=== PATIENT | female | born 1985 | race Caucasian/White ===

== ENCOUNTER 2017-11-25 10:12 | Inpatient (IN) | payer OTHER ==
[~2017-11-25] VITALS: Ht 170.2 cm; Wt 63.0 kg
[~2017-11-25 10:12] MED LIST: ATARAX,VISTARIL25 MG PO; NEXIUM40 MG PO; NOHOMEMEDS; PRENATAL CAPSU1 EACH PO; PROZAC; XANAX1 MG PO; ~No Medications
[2017-11-25 10:56] LABS: HEMATOCRIT 37.4 % (36.0-46.0); HEMOGLOBIN 13.1 G/DL (11.9-15.5); MCH 31.4 PG (29.0-34.0); MCV 89.7 FL (83-99); PLATELET COUNT 269 K/uL (156-360); RBC DIS.WIDTH-CV 11.9 % (11.8-14.6); RBC DIS.WIDTH-SD 38.2 % (39-53); RED BLOOD COUNT 4.17 M/uL (3.80-5.20); WHITE BLOOD COUNT 10.7 K/uL (4.1-10.2)
[2017-11-25 11:09] LABS: ALBUMIN 4.4 g/dL (3.2-4.8); CHLORIDE 106 mEq/L (99-109); POTASSIUM 4.5 mEq/L (3.7-5.4); SODIUM 139 mEq/L (136-147)
[2017-11-25 11:12] LABS: GLUCOSE 87 mg/dL (70-99); TOTAL PROTEIN 6.9 g/dL (6.4-8.3)
[2017-11-25 11:14] LABS: TOTAL BILIRUBIN 0.4 mg/dL (0.0-1.0)
[2017-11-25 11:15] LABS: ALKALINE PHOSPHATASE 49 IU/L (3-129); SERUM ETHYL ALCOHOL 10 mg/dL
[2017-11-25 11:16] LABS: CREATININE 0.8 mg/dL (0.6-1.3); GFR ESTIMATE (CALCULATED) > 59 mL/min/
[2017-11-25 11:17] LABS: AST (GOT) 22 IU/L (2-34); UREA NITROGEN (BUN) 5 mg/dL (9-23)
[2017-11-25 11:18] LABS: ALT (GPT) 17 IU/L (3-49)
[2017-11-25 11:26] LABS: QUANTITATIVE HCG < 4.0 MIU/ML
[2017-11-25] MEDS ORDERED: AMLOD-VALSA-HC1 EACH PO (13:25)
[2017-11-26 07:46] VITALS: BP 158/117
[2017-11-26 12:26] LABS: BENZODIAZEPINES, URINE SCREEN Negative (200 ng/mL)
[2017-11-26 13:24] VITALS: BP 143/86
[2017-11-26 16:24] VITALS: BP 139/108
[2017-11-27 08:04] VITALS: BP 135/91
[2017-11-27 15:59] VITALS: BP 115/85
[2017-11-28 07:32] VITALS: BP 136/92
[2017-11-28] MEDS ORDERED: DESYREL100 MG PO (08:53)
== END 2017-11-28 10:23 | disposition home or self-care (01) | DRG 897 ==
LOC: EME 10:12 → 1WEST 12:58 → EDOF 12:58 → ENRESERV 13:45 → 1WEST 14:20
PROVIDERS: Emergency Medicine; Psychiatry & Neurology Psychiatry
DX: F19.14 Other psychoactive substance abuse with psychoactive substance-induced mood disorder (principal); F22 Delusional disorders; F41.0 Panic disorder [episodic paroxysmal anxiety]
CPT/HCPCS: 80053; 80306 90; 81003; 84702; 85027; 90837; G0480; J1630; J2060; Q0177